=== PATIENT | female | born 1955 | race African-American/Black ===

== ENCOUNTER 2018-01-16 23:57 | Emergency (ER) | payer OTHER ==
[~2018-01-16] VITALS: Ht 167.6 cm; Wt 113.4 kg
[2018-01-17 00:21] VITALS: BP 172/123
--- NOTE | 2018-01-17 00:25 | NUR ---
PT BB SELF FROM HOME C/O RT HIP PAIN W/ RT KNEE PAIN X 3 DAYS, TRIED TYLENOL W/ COD W/ NO RELIEF USING BIOFREEZE W/ NO RELIEF. PT IS AAOX4. RESP EVEN AND UNLABORED. NO S/S OF ACUTE DISTRESS NOTED. VSS. SKIN WNL. PT SAFETY AND COMFORT MEASURES IN PLACE. PT PLACED ON MONITOR AND POX. AWAITING MD FOR EVAL
[2018-01-17] MEDS ORDERED: KETOROLAC TROMETHAMINE INJ 60 MG/2 ML VIAL IM ONE ×2 (00:30→00:33)
--- NOTE | 2018-01-17 00:30 | NUR ---
PT TO CT
== END 2018-01-17 02:01 | disposition home or self-care (01) ==
LOC: ER 01-17 00:01
DX: M25.551 Pain in right hip (principal); I10 Essential (primary) hypertension; M16.0 Bilateral primary osteoarthritis of hip; Z60.2 Problems related to living alone
CPT/HCPCS: 72192-TC; A4606; J1885; Z7610